=== PATIENT | female | born 1980 | race Caucasian/White ===

== ENCOUNTER 2023-04-07 20:26 | Emergency (ER) | payer OTHER ==
[2023-04-07] MEDS ORDERED: Orphenadrine 60 MG/2 ML Inj IM ONE (20:55)
[2023-04-07] MEDS ORDERED: Dexamethasone 4 MG/ML SDV IM ONE (20:55)
[2023-04-07] MEDS ORDERED: Acetaminophen 500 MG Tab PO ONE (20:58)
[2023-04-07] MEDS ORDERED: Take Home: Cyclobenzaprine 10 MG Tab, 4 Tab Pack PO ONE (20:59)
[2023-04-08 00:27] VITALS: BP 160/110; PULSE 68
== END 2023-04-07 21:35 | disposition home or self-care (01) ==
LOC: VM.ED 20:26
DX: M62.830 Muscle spasm of back (principal); M54.42 Lumbago with sciatica, left side; Z88.0 Allergy status to penicillin; Z79.899 Other long term (current) drug therapy
CPT/HCPCS: 96372; 99283; A9270; J1100; J2360